=== PATIENT | male | born 1960 | race Caucasian/White ===

== ENCOUNTER 2024-09-18 12:22 | Outpatient (CLI) | payer OTHER, SELFPAY | END 2024-09-18 12:23 | disposition home or self-care (01) | LOC: AMB 09-20 14:03 | PROVIDERS: Visit Provider Emergency Medicine Emergency Medical Services | DX: I46.9 Cardiac arrest, cause unspecified (principal) | CPT/HCPCS: A0425; A0433 ==

== ENCOUNTER 2024-09-18 12:49 | Emergency (ER) | payer OTHER, SELFPAY ==
--- OUTSIDE RECORDS SUMMARY | 2024-09-18 12:54 | XMS_ITS | Clinical Summary ---
Author Organization [facility] Address [address] [place] [id number] Care Team Providers Care Dean For Student Affairs Name Role Phone Unavailable Primary Care Provider Unavailabl e Allergies No known active allergies Medications multivitamin (MVI) tablet Take 1 tablet by mouth once daily. 0 11/25/19 14 Active B complex-folic acid (B COMPLEX 100) 0.4 mg tab tablet Take 1 tablet by mouth once daily. 0 11/25/19 14 Active betamethasone dipropionate 0.05% (DIPROSONE LOTION 0.05%) lotionIndications :Psoriasis Apply topically to affected area(s) two times daily. 60 mL 1 08/07/19 24 Active clobetasol 0.05% (TEMOVATE 0.05% OINTMENT) 0.05 % ointmentIndicatio ns:Psoriasis Apply topically to affected area(s) two times daily. 120 g 1 08/07/19 24 Active levothyroxine (SYNTHROID) 150 mcg tabletIndications :Other specified hypothyroidism TAKE ONE TABLET (150 MCG) BY MOUTH ONCE DAILY 90 Tablet 08/01/19 25 Active chlorthalidone (HYGROTON) 25 mg tabletIndications :Essential hypertension TAKE 1 TABLET (25 MG) BY MOUTH ONCE DAILY. 90 Tablet 08/21/19 25 Active losartan (COZAAR) 50 mg tabletIndications :Essential hypertension TAKE 1 TABLET (50 MG) BY MOUTH ONCE DAILY. 90 Tablet 08/21/19 25 Active chlorthalidone (HYGROTON) 25 mg tabletIndications :Essential hypertension Take 1 Tablet (25 mg) by mouth once daily. 90 Tablet 3 08/07/19 24 025 Discontinued losartan (COZAAR) 50 mg tabletIndications :Essential hypertension Take 1 Tablet (50 mg) by mouth once daily. 90 Tablet 3 08/07/19 24 025 Discontinued Active Problems Problem Noted Date Diagnosed Date Essential hypertension 04/29/2022 Routine adult health maintenance 09/24/2017 Overview (09/24/2017): Colonoscopy 08/2017 normal, repeat in 10 years Unspecified hypothyroidism 01/26/2009 Hearing loss in left ear Encounters Date Type Department Care Team Description 08/19/2024 Refill [facility] [address] [place] [address] VotelMayco MD Refill Request (Chlorthalidone, Losartan) 07/27/2024 Refill [facility] [address] [place] [address] Votel, Mayco Franklin MD Refill Request (Levothyroxine) from Last 3 Months Immunizations Name Administration Dates Next Due COVID-19 vaccine ([employer] NTech 30mcg/0.3mL) 12YO+ BIVALENT PF, MDV 06/10/2022 COVID-19 vaccine ([employer] NTech 30mcg/0.3mL) PF, MDV 06/15/2021,11/09/2020,10/19/2020 Hepatitis A (Adult) 11/09/2015,08/25/2014 Influenza, IIV3 (Age 6-35 mos) 04/01/2018,2010,06/19/2009 Influenza, IIV3 (Age >=3 years) 04/02/20 13,04/01/2012,05/31/2011, 010,06/19/2009 Influenza, IIV4 05/16/2023, 1,03/30/2015, 014 Influenza, IIV4 (=>6mos) MDV 03/29/2020,03/31/20 19,04/02/2017 Influenza, Injectable, Mdck, Quadrivalent, W/preservative 05/22/2022 Tdap 10/08/2016,05/04/2009 Typhoid (injectable) 08/25/2014 Zoster (Shingrix-RZV, recombinant) 12/29/2018,,10/20/2018 Family History Medical History Relation Name Comments Cancer-prostate Father 71years/ jennifer eased from prostate cancer Other Mother uterine cancer Relation Name Status Comments Father Mother Social History Tobacco Use Types Packs/Day Years Used Date Smoking Tobacco: Never Smokeless Tobacco: Never Tobacco Cessation:Counseling Given: Yes Alcohol Use Standard Drinks/Week Comments Yes 6 (1 standard drink = 0.6 oz pur e alcohol) 2-4 drinks per weeks PHQ-2 Answer Date Recorded PHQ-2 TOTAL SCORE 0 08/07/2023 Social Connections Answer Date Recorded Do you often feel lonely or isolated from those around you? 0 08/06/2023 Financial Resource Strain Answer Date R ecorded Difficulty of Paying Living Expenses 3 08/06/2023 Difficulty of Paying Living Expenses Not on file 08/06/2023 Food Insecurity Answer Date Recorded Do you worry your food will run out before you are able to buy more? 1 08/06/2023 Transportation Needs Answer Date Record ed Does lack of transportation keep you from medica l appointments? 1 08/06/2023 Does lack of transportation keep you from work, meetings or getting things that you need? 1 08/06/2023 Housing Stability Answer Date Recorded What is your housing situation today? 1 08/06/2023 Utilities Answer Date Recorded Do you have trouble paying f or utilities (for example, heat, electricity, water, phone)? 1 08/06/2023 Sex and Gender Information Value Date Recorded Sex Assigned at Male 08/06/2023 1:16 PM DESIGN TECHNOLOGY TEACHER Legal Sex Male 6:20 AM DESIGN TECHNOLOGY TEACHER Gender Identity Male 08/06/2023 1:16 PM DESIGN TECHNOLOGY TEACHER Sexual Orientation Straight 08/06/2023 1: 16 PM DESIGN TECHNOLOGY TEACHER Obstetrics History Last Filed Vital Signs Vital Sign Reading Time Taken Comments Blood Pressure 137/79 08/26/2023 2:57 PM DESIGN TECHNOLOGY TEACHER Pulse 80 08/26/2023 2:57 PM DESIGN TECHNOLOGY TEACHER Temperature 36.8 C (98.3 F) 06/14/2020 8:11 AM DESIGN TECHNOLOGY TEACHER Respiratory Rate - - Oxygen Saturation 99% 08/26/2023 2:57 PM DESIGN TECHNOLOGY TEACHER Inhaled Oxygen Concentration - - Weight 116.6 kg (257 lb) 08/26/2023 2:57 PM DESIGN TECHNOLOGY TEACHER with shoes Height 179.1 cm (5' 10.5) 08/21/2023 8:11 AM CS T Body Mass Index 36.35 08/21/2023 8:11 AM DESIGN TECHNOLOGY TEACHER Plan of Treatment Health Maintenance Due Date Last Done Comments HIV for age 15-65 1974 Hepatitis C screening for ag e 18-79 1977 Pneumococcal series for age 50+ (1 of 1 - PCV) 2009 COVID-19 vaccine series ( season) 2024 06/02/2023, 06/10/2022, 06/15/2021, Additional history exists Influenza for age 65+ 2024 05/16/2023 , 05/22/2022, 07/19/2021, Additional history exists Depression screening for age 12+ 08/07/2024 08/07/2023, 01/10/2022, 01/09/2022, Additional history exists BMI (ht and wt on same day) for age 18+ 08/21/2024 08/21/2023, 01/10/2022, 06/14/2020, Additional history exists Tetanus booster 10/08/2026 10/08/2016, 05/04/2009 Colonoscopy through age 75 09/24/202709/24, 09/24/2017, 09/24/2017 Lipids for age 45-75 08/07/2028 08/07/2023, 01/10/2022, 01/10/2022, Additional history exists RSV vaccine for adults or (1 - 1-dose 75+ series) 2034 Tdap Completed 10/08/2016, 05/04/2009 Zoster (shingles) series for age 50+ Completed 12/29/2018, 11/10/2018, 10/20/2018 Procedures Procedure Name Priority Date/Time Associated Diagnosis Comments LIPID PANEL W REFLEX MEASURED LDL Routine 08/07/2023 10:50 AM DESIGN TECHNOLOGY TEACHER Screening cholesterol level COLONOSCOPY 09/24/2017 7:49 AM DESIGN TECHNOLOGY TEACHER from Last 3 Months or Most Recently Relevant to Health Maintenance Results * (ABNORMAL) LIPID PANEL W REFLEX MEASURED LDL (08/07/2023 10:50 AM DESIGN TECHNOLOGY TEACHER) CHOLESTEROL,TOTAL 227(H) 100 - 199 mg/dL 08/07/2023 5:07 PM DESIGN TECHNOLOGY TEACHER [facility] Comment: Cholesterol, Total Reference Ranges Desirable <200 mg/dL Borderline 200-239 mg/dL High >=240 mg/dL TRIGLYCERIDES 216(H) <150 mg/dL 08/07/2023 5:07 PM DESIGN TECHNOLOGY TEACHER [facility] HDL CHOLESTEROL 51 >40 mg/dL 5:07 PM DESIGN TECHNOLOGY TEACHER [facility] NON-HDL CHOLESTEROL 176(H) <145 mg/dl 08/07/2023 5:07 PM DESIGN TECHNOLOGY TEACHER [facility] CHOL/HDL RATIO 4.45 <4.50 08/07/2023 5:07 PM DESIGN TECHNOLOGY TEACHER [facility] LDL CHOLESTEROL 133(H) <=130 mg/dL 08/07/2023 5:07 PM DESIGN TECHNOLOGY TEACHER [facility] VLDL CHOLESTEROL 43(H) <=30 mg/dL 08/07/2023 5:07 PM DESIGN TECHNOLOGY TEACHER [facility] PROVIDER ORDERED STATUS RANDOM 08/07/2023 5:07 PM DESIGN TECHNOLOGY TEACHER [facility] Blood BLOOD SPECIMEN / Unknown Venipuncture / Unknown 08/07/2023 10:50 AM DESIGN TECHNOLOGY TEACHER 08/07/2023 10:50 AM DESIGN TECHNOLOGY TEACHER us Mayco Cardenas MD CHEMISTRY Final Re sult [facility] [address] [place] [id number], * COLONOSCOPY (09/24/2017 7:49 AM DESIGN TECHNOLOGY TEACHER) 09/24/2017 7:49 AM DESIGN TECHNOLOGY TEACHER Narrative Transcriptions Frandy Albright MD - 09/24/2017 8:34 AM CST Patient Name: Titus Byrd Procedure Date: 09/24/2017 Gender: Male Date of : 1960 Admit Type: Outpatient Procedure: Colonoscopy Proceduralist: Frandy lAbright MD , Jesenia Dalal (Nurse) Indications/Pre-Op Diagnosis: Screening for colorectal malignant neoplasm, This is the patient's first colonoscopy Medications: Fentanyl 100 micrograms IV, Midazolam 4 mgIV, The level of sedation administered wasmoderate Procedure Description: The patient had risks, benefits and alternatives explained to andgave informed consent. The patient had a stable cardiopulmonary status and judged an adequate candidate for conscious sedation. The Colon CF-H180AL [id number] was passed through the anus and advancedto the cecum, identified by appendiceal orifice and ileocecal valve. The colonoscopy was performed without difficulty. The patient toleratedthe procedure well. The quality of the bowel preparation was excellent.The ileocecal valve, appendiceal orifice, and rectum were photographed. Complications: No immediate complications. Estimated Blood Loss & Specimen: Estimated blood loss: none. Specimen collected - None Findings: The perianal and digital rectal examinations were normal. The entire examined colon appeared normal on direct and retroflexion views. Impressions/Post-Op Diagnosis: - The entire examined colon is normal on direct and retroflexionviews. - No specimens collected. Recommendation: - Patient has a contact number available for emergencies. The signsand symptoms of potential delayed complications were discussed with the patient. Return to normal activities tomorrow. Written discharge instructions were provided to the patient. - Resume previous diet. - Continue present medications. - Repeat colonoscopy in 10 years for screening purposes. Moderate Sedation: Moderate (conscious) sedation was administered by the endoscopy nurse and supervised by the endoscopist. The following parameters were monitored: oxygen saturation, heart rate, respiratory rate, blood pressure, adequacy of pulmonary ventilation and reponse to care. Please refer to the patien'ts medical record flowsheets and nursing notes for moderate sedation details. Total physician intraservice time was 15 minutes. Frandy Albright MD 09/24/2017 8:34:00 AM This report has been signed electronically. Note Initiated On: 09/24/2017 7:49 AM Procedure Code(s): --- Professional --- 80162, Colonoscopy, flexible; diagnostic, including collection of specimen(s) bybrushing or washing, when performed (separateprocedure) Diagnosis Code(s): --- Professional --- Z12.11, Encounter for screening formalignant neoplasm of colon CPT copyright 2016 [employer]. All rights reserved. The codes documented in this report are preliminary and upon disc pad plate filler reviewmay be revised to meet current compliance requirements. Scope In: 8:17:59 AM Scope Withdrawal Time 0 hours 8 minutes 17 seconds Scope Out: 8:29:10 AM us Frandy Albright MD PROCEDURE ORD Final Res ult from Last 3 Months or Most Recently Relevant to Health Maintenance Advance Directives Documents on File Type Date Recorded Patient It Data Architect Expl anation Healthcare Directive 07/17/2017 8:48 AM KRISTINA HURD, 07/01/2017
--- NOTE | 2024-09-18 13:13 | RESP.RT ---
Patient arrived via EMS with Mark functioning, continued; bag ventilation with PEEP valve at 5 cm, EtCO2 in ialb00-30 torr. BBS present. code determined.
--- OUTSIDE RECORDS SUMMARY | 2024-09-18 13:24 | XMS_ITS | Clinical Summary ---
Author Organization [facility] Address [address] [place] [id number] Care Team Providers Care Plant Senior Manager Name Role Phone Unavailable Primary Care Provider [...] Type Department Care Team Description 08/19/2024 Refill [facility] [address] [place] [address] VotelMayco MD Refill Request (Chlorthalidone, Losartan) 07/27/2024 Refill [facility] [address] [place] [address] Votel, Mayco Franklin MD Refill Request (Levothyroxine) from Last 3 Months Immunizations Name Administration Dates Next Due COVID-19 vaccine ([employer] NTech 30mcg/0.3mL) 12YO+ BIVALENT PF, MDV 06/10/2022 COVID-19 vaccine ([employer] NTech 30mcg/0.3mL) PF, MDV 06/15/2021,11/09/2020,10/19/2020 Hepatitis A [...] Sex Assigned at Male 08/06/2023 1:16 PM PLASTIC INSTALLER Legal Sex Male 6:20 AM PLASTIC INSTALLER Gender Identity Male 08/06/2023 1:16 PM PLASTIC INSTALLER Sexual Orientation Straight 08/06/2023 1: 16 PM PLASTIC INSTALLER Obstetrics History Last Filed Vital Signs Vital Sign Reading Time Taken Comments Blood Pressure 137/79 08/26/2023 2:57 PM PLASTIC INSTALLER Pulse 80 08/26/2023 2:57 PM PLASTIC INSTALLER Temperature 36.8 C (98.3 F) 06/14/2020 8:11 AM PLASTIC INSTALLER Respiratory Rate - - Oxygen Saturation 99% 08/26/2023 2:57 PM PLASTIC INSTALLER Inhaled Oxygen Concentration - - Weight 116.6 kg (257 lb) 08/26/2023 2:57 PM PLASTIC INSTALLER with shoes Height 179.1 cm (5' 10.5) 08/21/2023 8:11 AM CS T Body Mass Index 36.35 08/21/2023 8:11 AM PLASTIC INSTALLER Plan of Treatment Health Maintenance Due Date [...] REFLEX MEASURED LDL Routine 08/07/2023 10:50 AM PLASTIC INSTALLER Screening cholesterol level COLONOSCOPY 09/24/2017 7:49 AM PLASTIC INSTALLER from Last 3 Months or Most Recently Relevant to Health Maintenance Results * (ABNORMAL) LIPID PANEL W REFLEX MEASURED LDL (08/07/2023 10:50 AM PLASTIC INSTALLER) CHOLESTEROL,TOTAL 227(H) 100 - 199 mg/dL 08/07/2023 5:07 PM PLASTIC INSTALLER [facility] Comment: Cholesterol, Total Reference Ranges Desirable <200 mg/dL Borderline 200-239 mg/dL High >=240 mg/dL TRIGLYCERIDES 216(H) <150 mg/dL 08/07/2023 5:07 PM PLASTIC INSTALLER [facility] HDL CHOLESTEROL 51 >40 mg/dL 5:07 PM PLASTIC INSTALLER [facility] NON-HDL CHOLESTEROL 176(H) <145 mg/dl 08/07/2023 5:07 PM PLASTIC INSTALLER [facility] CHOL/HDL RATIO 4.45 <4.50 08/07/2023 5:07 PM PLASTIC INSTALLER [facility] LDL CHOLESTEROL 133(H) <=130 mg/dL 08/07/2023 5:07 PM PLASTIC INSTALLER [facility] VLDL CHOLESTEROL 43(H) <=30 mg/dL 08/07/2023 5:07 PM PLASTIC INSTALLER [facility] PROVIDER ORDERED STATUS RANDOM 08/07/2023 5:07 PM PLASTIC INSTALLER [facility] Blood BLOOD SPECIMEN / Unknown Venipuncture / Unknown 08/07/2023 10:50 AM PLASTIC INSTALLER 08/07/2023 10:50 AM PLASTIC INSTALLER us Mayco Cardenas MD CHEMISTRY Final Re sult [facility] [address] [place] [id number], * COLONOSCOPY (09/24/2017 7:49 AM PLASTIC INSTALLER) 09/24/2017 7:49 AM PLASTIC INSTALLER Narrative Transcriptions Frandy Albright MD - 09/24/2017 8:34 AM CST Patient Name: Titus Byrd Procedure Date: 09/24/2017 Gender: Male Date of : 1960 Admit Type: Outpatient Procedure: Colonoscopy Proceduralist: Frandy Albright MD , Jesenia Dalal (Nurse) Indications/Pre-Op Diagnosis: [...] candidate for conscious sedation. The Colon CF-H180AL [id number] was passed through the anus and advancedto [...] 7:49 AM Procedure Code(s): --- Professional --- 75083, Colonoscopy, flexible; diagnostic, including collection of specimen(s) bybrushing or washing, when performed (separateprocedure) Diagnosis Code(s): --- Professional --- Z12.11, Encounter for screening formalignant neoplasm of colon CPT copyright 2016 [employer]. All rights reserved. The codes documented in this report are preliminary and upon sap portal architect reviewmay be revised to meet current compliance requirements. Scope In: 8:17:59 AM Scope Withdrawal Time 0 hours 8 minutes 17 seconds Scope Out: 8:29:10 AM us Frandy Albright MD PROCEDURE ORD Final Res ult from Last 3 Months or Most Recently Relevant to Health Maintenance Advance Directives Documents on File Type Date Recorded Patient Calender Feeder Expl anation Healthcare Directive 07/17/2017 8:48 AM KRISTINA HURD, 07/01/2017
--- NOTE | 2024-09-18 13:37 | ED.GENADULT ---
HPI - General Adult General Chief complaint: Cardiac Arrest/CPR Stated complaint: Critical Care Ambulance Arrival Time Seen by Provider: 09/18/24 13:09 History of Present Illness HPI narrative: This is a 64-year-old male who comes in by ambulance because of witnessed cardiac arrest. His was driving him in for evaluation because he was complaining of a severe headache. While in the car he suddenly collapsed and police arrived and applied and automatic external defibrillator. The rhythm was analyzed as 1 that would benefit from defibrillation so this was executed without any results. CPR was started rather quickly after this arrest occurred. Ambulance arrived at 12:21 p.m. and resumed CPR with an airway in place. The patient received 3 doses of epinephrine and rhythm was diagnosed as pulseless electrical activity. He arrived here in the emergency department about 25 minutes after CPR was initiated. Review of Systems Narrative: Unable to obtain because of cardiac arrest. Exam Narrative: Exam Narrative: Constitutional: Unconscious in cardiac arrest. HEENT: Normocephalic. Small amount of blood at the external aspect of the left ear but the ear canals bilaterally appear normal with no sign of hemotympanum. Heart: Asystole. Lungs: Mechanical ventilation with lung sounds heard bilaterally. Abdomen: No distended abdomen. Genitalia: Deferred. Extremities: No sign of injury. Skin: Pallor. Neurologic: No responses. Pupils are dilated. Nursing notes and vitals signs are reviewed. Medical Decision Making MDM Narrative Medical decision making narrative: This patient arrives in cardiac arrest and CPR has been occurring for 20 minutes prior to arrival here. Of the Mark machine was paused several times to check for pulse. His heart was not producing any pulse and the rhythm showed asystole. I was able also to look with ultrasound and saw absolutely no cardiac activity. There is no sign of effusion around the heart. The patient received another dose of epinephrine and also sodium bicarbonate. Dr. Wolf assisted in this process. He did discuss with the patient's after about 45 minutes of CPR to state that there was no response in these interventions. CPR was discontinued after about 45 minutes and the code was stopped at 1304 at which time he was pronounced . There are no heart tones and no spontaneous breathing. Pupils are fixed and dilated. Discharge Plan Discharge Clinical Impression: Cardiac arrest Patient Disposition: Follow Up/Referrals: Provider,Not a Local [Primary Care Provider] - Probable Cause of Probable Cause of : Cardiac arrest
== END 2024-09-19 00:17 | disposition expired ==
PROVIDERS: Emergency Provider Emergency Medicine Emergency Medical Services
DX: I46.9 Cardiac arrest, cause unspecified (principal)
CPT/HCPCS: 99285; 99291